=== PATIENT | female | born 1945 | race Caucasian/White ===

== ENCOUNTER 2017-07-21 13:45 | Emergency (ER) | payer BC ==
[~2017-07-21] VITALS: Ht 160 cm; Wt 93.5 kg
[~2017-07-21 13:45] MED LIST: ABILIFY10 MG PO; CYMBALTA30 MG PO; CYMBALTA60 MG; DALMANE30 MG PO; ENDOCET 5-3251 EACH PO; Elavil PO; OxyCONTIN PO
[2017-07-21 14:48] LABS: HEMATOCRIT 41.9 % (36.0-46.0); MCH 31.9 PG (29.0-34.0); MCHC 34.8 G/DL (30.0-36.0); MCV 91.5 FL (83-99); MEAN PLAT.VOLUME 9.4 uM^3 (9.5-12.4); PLATELET COUNT 406 K/uL (156-360); RBC DIS.WIDTH-CV 13.6 % (11.8-14.6); RED BLOOD COUNT 4.58 M/uL (3.80-5.20); WHITE BLOOD COUNT 12.8 K/uL (4.1-10.2)
[2017-07-21 14:59] LABS: CHLORIDE 106 mEq/L (99-109); POTASSIUM 3.6 mEq/L (3.7-5.4); SODIUM 141 mEq/L (136-147)
[2017-07-21 15:01] LABS: GLUCOSE 98 mg/dL (70-99)
[2017-07-21 15:02] LABS: ANION GAP 8 MEQ/L (2-14)
[2017-07-21 15:05] LABS: GFR ESTIMATE (CALCULATED) > 59 mL/min/
[2017-07-21 15:06] LABS: UREA NITROGEN (BUN) 15 mg/dL (9-23)
[2017-07-21 15:52] LABS: TROP-I INTERPRETATION NEGATIVE; TROPONIN-I < 0.01 ng/mL (0.0-0.30)
[2017-07-21 17:30] VITALS: BP 118/76
[2017-07-21] MEDS ORDERED: VENTOLIN HFA18 GM IH (17:39)
[2017-07-21 18:03] LABS: ADD MIUA? NO; BILIRUBIN NEGATIVE; BLOOD NEGATIVE; COLOR YELLOW ((YELLOW)); GLUCOSE (STRIP) NEGATIVE; KETONES NEGATIVE; LEUKOCYTES NEGATIVE; NITRITE NEGATIVE; PROTEIN (STRIP) NEGATIVE; SPECIFIC GRAVITY 1.012 (1.000-1.030); UCUL ADDED? NO; UROBILINOGEN 0.2 MG/DL (0.2-1.0)
[2017-07-21] MEDS ORDERED: NORCO 5/3251 TABLET PO (18:41)
== END 2017-07-21 18:50 | disposition home or self-care (01) ==
LOC: EME 13:45 → RME 13:45
PROVIDERS: Physician Assistant
DX: J44.1 Chronic obstructive pulmonary disease with (acute) exacerbation (principal); G93.9 Disorder of brain, unspecified; F17.200 Nicotine dependence, unspecified, uncomplicated; Z71.6 Tobacco abuse counseling
CPT/HCPCS: 70450; 71020; 80048; 81003; 84484; 85027; 85379; 93005; 99281; 99285